=== PATIENT | female | born 1950 | race Caucasian/White ===

== ENCOUNTER → 2017-12-14 | Outpatient (CLI) | payer MEDICARE, BC ==
[~2017-12-14] MED LIST: ATOR20TA15 PO; BUSP5TAB PO; CLAR10CA3 PO; LORA1TAB12 PO; MEMA1CAP2 PO; RISP1TAB2 PO; TRAZ50TA12 PO
[2017-12-14 11:21] LABS: BASOPHIL % 0.4 % (0.0-2.0); EOSINOPHIL % 0.4 % (0.0-4.0); HEMATOCRIT 43.5 % (35.0-46.0); HEMOGLOBIN 14.8 GM/DL (11.6-15.3); LYMPH % 17.1 % (9.0-44.0); LYMPHOCYTE # 1.6 TH/MM3 (1.0-4.8); MEAN CELL VOLUME 94.4 FL (80.0-100.0); MEAN CORPUSCULAR HEMOGLOBIN 32.2 PG (27.0-34.0); MEAN CORPUSCULAR HGB CONC 34.1 % (32.0-36.0); MEAN PLATELET VOLUME 9.9 FL (7.0-11.0); MONOCYTE # 0.5 TH/MM3 (0-0.9); NEUT % 76.1 % (16.0-70.0); PLATELET COUNT 341 TH/MM3 (150-450); RED BLOOD COUNT 4.61 MIL/MM3 (4.00-5.30); RED CELL DISTRIBUTION WIDTH 13.7 % (11.6-17.2); WHITE BLOOD COUNT 9.2 TH/MM3 (4.0-11.0)
[2017-12-14 11:48] LABS: BILIRUBIN, URINE NEG (NEG); BLOOD, URINE NEG (NEG); GLUCOSE,URINE NEG (NEG); KETONE, URINE 40 mg/dL (NEG); MUCUS URINE FEW /lpf (OCC); NITRITE,URINE NEG (NEG); PH, URINE 5.5 (5.0-8.5); SQUAMOUS EPITHELIAL CELL URINE <1 /hpf (0-5); URINE COLOR YELLOW (YELLW/STRAW); URINE LEUKOCYTE ESTERASE NEG (NEG)
--- NOTE | 2017-12-14 11:56 | RADRPT ---
EXAM DATE/TIME: 12/14/2017 11:21 [place] COMPARISON: No previous studies available for comparison. INDICATIONS : Evaluate for pneumonia, pneumothorax or communicable disease. Pre op for transanal excision / anal ca ncer MEDICAL HISTORY : none known SURGICAL HISTORY : none known ENCOUNTER: Initial ACUITY: 1 day PAIN SCORE: 0/10 LOCATION: Bilateral chest FINDINGS: PA and lateral views of the chest demonstrate the lungs to be symmetrically aerated without evidence of mass, infiltrate or effusion. The cardiomediastinal contours are unremarkable. Left lumbar scoli osis measuring 30. CONCLUSION: No acute cardiopulmonary disease. Theodore Lovett MD on December 14, 2017 at 11:52 Board Certified Radiologist. This report was verified electronically.
[2017-12-14 12:23] LABS: ALBUMIN 3.9 GM/DL (3.4-5.0); ALKALINE PHOSPHATASE 66 U/L (45-117); ALT (GPT) 26 U/L (10-53); AST (GOT) 32 U/L (15-37); BICARBONATE 28.9 MEQ/L (21.0-32.0); BLOOD UREA NITROGEN 11 MG/DL (7-18); CALCIUM 9.2 MG/DL (8.5-10.1); CHLORIDE 103 MEQ/L (98-107); CREATININE 0.81 MG/DL (0.50-1.00); GLOMERULAR FILTRATION RATE 71 ML/MIN (>89); GLUCOSE,FASTING 84 MG/DL (74-99); SODIUM (NA) 140 MEQ/L (136-145); TOTAL BILIRUBIN ADULT 0.6 MG/DL (0.2-1.0); TOTAL PROTEIN 7.4 GM/DL (6.4-8.2)
--- NOTE | 2017-12-15 14:51 | EKG ---
Date Performed: 12/14/2017 Time Performed: 10:41:29 PTAGE: 67 years EKG: Sinus rhythm NORMAL ECG PREVIOUS TRACING : 04/10/2010 20.21 Since previous tracing, no significant change. DOCTOR: Broderick De Los Santos Interpretating Date/Time 12/15/2017 14:49:32
== END ==
LOC: CPRE 10:10
PROVIDERS: ATTEND Colon & Rectal Surgery
DX: Z01.812 Encounter for preprocedural laboratory examination (principal); Z01.810 Encounter for preprocedural cardiovascular examination; Z01.811 Encounter for preprocedural respiratory examination; C21.1 Malignant neoplasm of anal canal
CPT/HCPCS: 36415; 71046; 80053; 81001; 82378; 85025; 93005

== ENCOUNTER → 2017-12-21 | Day surgery (SDC) | payer MEDICARE, BC ==
[~2017-12-21] VITALS: Ht 160 cm; Wt 52.8 kg
[~2017-12-21] MED LIST changes: +ACETAMINOPHEN/HYDROcodone 325 MG/5 MG TAB ONE; +CHLORHEXIDINE GLUCONATE 2 % 1 PACK (2 CLOTHS) TOPICAL PRN; +DEXAMETHASONE SOD PHOS 4 MG/ML VIAL IV ONE; +DO NOT ADM ANY ANTICOAGULANT DRUGS PRN; +INSULIN HUMAN REGULAR 1,000 UNITS/10 ML VIAL SQ PRN; +LACTATED RINGER'S 1000 ML IV PRN; +LIDOCAINE 1%/EPINEPHrine 1:100,000 SOLN 30 ML VIAL ONE; +LIDOCAINE HCL 1% PF 5 ML SYRINGE OTHER ONE; +METOPROLOL TARTRATE 25 MG TAB PO PRN; +ONDANSETRON HCL 4 MG/2 ML VIAL IV ONE; +PHENYLEPH/NS 1000 MCG/10 ML SYR IV ONE; +POVIDONE IODINE 5% (ANTISEPSIS KIT) 4 APPLICATIONS EACH NARE PRN; +PROPOFOL 200 MG/20 ML AMP IV ONE; +SODIUM CHLORID 0.9% 500 ML IV PRN
[2017-12-21 16:55] VITALS: BP 150/88; PULSE 93; RESP 14; TEMP 97.7; O2SAT 97
--- NOTE | 2017-12-21 23:26 | MP ---
cc: Levy Suarez MD,Patricia Sahu MD DATE OF OPERATION: 12/21/2017 PREOPERATIVE DIAGNOSIS: Squamous cell carcinoma of the anus. POSTOPERATIVE DIAGNOSIS: Squamous cell carcinoma of the anus. PROCEDURE PERFORMED: Transanal excision of squamous cell carcinoma. ANESTHESIA: General mask anesthesia and local 1% Xylocaine with epinephrine. SURGEON: Levy Suaerz MD ESTIMATED BLOOD LOSS: Minimal. 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 It was in the right posterior position and she was seen by Dr. Patricia Andrews of the oncology department and she felt that chemotherapy would be prohibitive because of her debilitation and dementia. For this reason, a transanal excision of this lesion was done to see if it is invasive and whether any further treatment should be done. At surgery, a transanal excision was done of the lesion in the right anterior position and the wound was closed. OPERATIVE TECHNIQUE: The patient was placed on the table in the supine position. After adequate general mask anesthesia, legs were placed in candy cane lithotomy position and the perineum was prepped and draped in the usual manner. A Braun bivalve retractor was inserted into the anal canal and in the right posterior position was the ulcerated fairly superficial feeling lesion about the size of a quarter. The area was injected with 1% Xylocaine with epinephrine and then the area was excised elliptically with electrocautery with about 0.5 cm margin, all the way around the mucosa and some of the perianal skin. The lesion was taken out with a rim of internal sphincter muscle at the base so that the lesion was fully removed with adequate margins. Once this was done, the wound was closed, transversely bringing down the mucosa and muscle layer and suturing with interrupted 3-0 Vicryl [id number] transversely across the dentate line region. Once the wound was closed and hemostasis was adequate, sponge, needle and instrument counts were reported as correct. Estimated blood loss was minimal. The patient tolerated the procedure well and left the operating room in good condition. Levy Suarez MD JTT/rt , 11:02 PM , 11:24 PM
== END | disposition home or self-care (01) ==
LOC: HSDC 12:20
PROVIDERS: ATTEND Colon & Rectal Surgery
DX: C21.1 Malignant neoplasm of anal canal (principal); Z86.010 Personal history of colon polyps
CPT/HCPCS: 00902; 45171; 88307; J1100; J2370; J2405; J7120; 88309